=== PATIENT | female | born 1990 | race Caucasian/White ===

== ENCOUNTER 2016-12-28 21:18 | Emergency (ER) | payer BC, OTHER ==
[~2016-12-28 21:18] MED LIST: IBUP60TA PO; MUCI30TA2 PO; PERCOCET PO; VITAPRTA PO
[2016-12-28] MEDS ORDERED: NAPROXEN 250 MG TAB As Ordered ONE ×2 (22:24→22:29)
[2016-12-28] MEDS ORDERED: AUGMENTIN 875 MG TAB As Ordered ONE (22:25)
--- NOTE | 2016-12-28 22:38 | EDDOCDS ---
Physician Documentation [facility] Name: Mag Rodriguez Age: 26 yrs Sex: Female : 1990 Arrival Date: 12/28/2016 Time: 21:18 Bed 13 Private MD: Other - Complete Info On Cds Disposition: 12/28 22:22 Critical Care: Critical care not applicable. le Disposition: 12/28/16 22:17 Discharged to Home/Self Care. Impression: Nonspecific lymphadenitis - right post auricular. - Condition is Stable. - Discharge Instructions: Lymphadenopathy. - Prescriptions for Augmentin 875- 125 mg Oral Tablet - take 1 tablet by ORAL route every 12 hours for 10 days; 20 tablet. - Medication Reconciliation, Local Pharmacy Hours form. - Follow up: TAMIA Ortega; When: Call to arrange an appointment; Reason: Recheck today's complaints, Continuance of care. - Problem is new. - Symptoms are unchanged. - Notes: Use Ibuprofen and Tylenol, as needed, for pain Return to the ED for worsening of swelling, redness, fever or any other concerns Historical: - Allergies: Copaxone; - Home Meds: 1. rebif Unknown 3x/week 2. Vitamin D Oral daily 3. Vitamin B-12 Oral daily - PMHx: Multiple Sclerosis; - PSHx: right unilateral coronal synsistosis; Tonsillectomy; plantar wart removal; ; - Social history: Smoking status: Patient states was never smoker of tobacco. No barriers to communication noted, The patient speaks fluent Vietnamese. - Family history: No immediate family members are acutely ill. - : The pt / caregiver states he / she is not on anticoagulants. Home medication list is obtained from the patient. - Exposure Risk Screening:: None identified. 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 5 in. (165.10 cm) (R); Pain 5/10; 21:20 Body Mass Index 35.61 (97.07 kg, 165.10 cm) gr2 MDM: 22:14 Amoxicillin-Clavulanate 875 mg 1 tabs PO once ordered. le 22:14 Naproxen 500 mg PO once; administer with food or milk ordered. le Signatures: Elaine Pederson RN RN Rosario Piña FNP Eligio Randhawa RN RN mb9 MTDD
--- NOTE | 2016-12-28 22:38 | EDDOCDS ---
Nurse's Notes [facility] Name: Mag Rodriguez Age: 26 yrs Sex: Female : 1990 Arrival Date: 12/28/2016 Time: 21:18 Bed 13 Private MD: Other - Complete Info On Cds Diagnosis: Nonspecific lymphadenitis-right post auricular Presentation: 12/28 21:26 Presenting complaint: Patient states: Bump behind right ear for last 3 days. Adult [facility] Sepsis Screening: The patient does not have new or worsening altered mentation. Patient's respiratory rate is less than 22. Systolic blood pressure is greater than 100. Patient has a qSOFA score of 0- Negative Sepsis Screen. Suicide/Homicide risk assessment- the patient denies having any suicidal and/or homicidal ideations and does not present with any other emotional, behavioral or mental health complaints. Status: The patient is a dependent. Transition of care: patient was not received from another setting of care. 21:26 Acuity: JESSI Level 4 [facility] 21:26 Method Of Arrival: Walkin/Carried/Asstd [facility] Triage Assessment: 21:30 General: Appears in no apparent distress, Behavior is cooperative. Pain: Location: [facility] right ear Pain currently is 7 out of 10 on a pain scale. HIV screening NA for this visit Offered previously. Neurological: No deficits noted. EENT: Reports pain in right ear Pain is 7 out of 10 on a pain scale. Respiratory: Airway is patent Respiratory effort is even, unlabored. Derm: Skin is pink, warm & dry. 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 rebif Unknown 3x/week 2. Vitamin D Oral daily 3. Vitamin B-12 Oral daily - PMHx: Multiple Sclerosis; - PSHx: right unilateral coronal synsistosis; Tonsillectomy; plantar wart removal; ; - Social history: Smoking status: Patient states was never smoker of tobacco. No barriers to communication noted, The patient speaks fluent Slovenian. - Family history: No immediate family members are acutely ill. - : The pt / caregiver states he / she is not on anticoagulants. Home medication list is obtained from the patient. - Exposure Risk Screening:: None identified. Screenin:35 Screening information is obtained from the patient. Fall risk: No risks identified. mb9 Assistance ADL's: requires no assistance with activities of daily living. Abuse/DV Screen: The patient / caregiver reports he/she is: not in a situation that causes fear, pain or injury. Nutritional screening: No deficits noted. Advance Directives: There is no active DNR order. home support is adequate. Assessment: 22:35 General: Appears in no apparent distress, Behavior is appropriate for age, cooperative. mb9 Respiratory: Airway is patent Respiratory effort is even, unlabored. Vital Signs: 21:20 BP 134 / 77; Pulse 84; Resp 18 S; Temp 97.1(O); Pulse Ox 99% on R/A; Weight 97.07 kg gr2 (R); Height 5 ft. 5 in. (165.10 cm) (R); Pain 5/10; 21:20 Body Mass Index 35.61 (97.07 kg, 165.10 cm) gr2 Vitals: 21:20 Log In Time: December 28, 2016 at 21:20. gr2 ED Course: 21:19 Patient visited by Macario Gutierrez. gr2 21:19 Patient moved to Waiting gr2 21:20 Other - Complete Info On Cds is Private Physician. gr2 21:21 Patient visited by Macario Gutierrez. gr2 21:21 Patient moved to Pre RCE gr2 21:27 Triage Initiated mcp 21:30 Patient visited by Elaine Pederson RN. mcp 22:04 [facility] le 22:04 Patient moved to 13 cz 22:08 Patient visited by Rosario Messer FNP. le 22:08 Patient visited by Rosario Messer FNP. le 22:17 Jordan [facility] is Referral Physician. le 22:35 The patient / caregiver is instructed regarding the plan of care and ED course. Patient mb9 has correct armband on for positive identification. 22:35 No IV's were initiated during this patient's visit. No procedures done that require mb9 assistance. Order Results: There are currently no results for this order. Outcome: 22:17 Discharge ordered by Provider. le 22:35 Discharge Assessment: Patient awake, alert and oriented x 3. No cognitive and/or mb9 functional deficits noted. Patient verbalized understanding of disposition instructions. patient administered narcotics - no. The following High Risk Discharge criteria are identified: None. Discharged to home ambulatory. Condition: good Condition: stable Condition: improved. Discharge instructions given to patient, Instructed on discharge instructions, Demonstrated understanding of instructions, medications, Pt was receptive of discharge instructions/ teaching. Prescriptions given X 1. No special radiology studies were completed. Property :Personal belongings accompany Pt. 22:37 Patient left the ED. mb9 Signatures: Elaine Pederson RN RN mcp Zecher, Calvin, RN RN cz Westcott, Lisa, FNP FNP le Raymond, Gainslee gr2 Eligio Sanabria RN RN mb9 MTDMaldonado
--- NOTE | 2016-12-30 23:38 | EDDOCDS ---
Nurse's Notes [facility] Name: Mag Rodriguez Age: 26 yrs Sex: Female : 1990 Arrival Date: 12/28/2016 Time: 21:18 Bed 13 Private MD: Other - Complete Info On Cds Diagnosis: Nonspecific lymphadenitis-right post auricular Presentation: 12/28 21:26 Presenting complaint: Patient states: Bump behind right ear for last 3 days. Adult [facility] Sepsis Screening: The patient does not have new or worsening altered mentation. Patient's respiratory rate is less than 22. Systolic blood pressure is greater than 100. Patient has a qSOFA score of 0- Negative Sepsis Screen. Suicide/Homicide risk assessment- the patient denies having any suicidal and/or homicidal ideations and does not present with any other emotional, behavioral or mental health complaints. Status: The patient is a dependent. Transition of care: patient was not received from another setting of care. 21:26 Acuity: JESSI Level 4 [facility] 21:26 Method Of Arrival: Walkin/Carried/Asstd [facility] Triage Assessment: 21:30 General: Appears in no apparent distress, Behavior is cooperative. Pain: Location: [facility] right ear Pain currently is 7 out of 10 on a pain scale. HIV screening NA for this visit Offered previously. Neurological: No deficits noted. EENT: Reports pain in right ear Pain is 7 out of 10 on a pain scale. Respiratory: Airway is patent Respiratory effort is even, unlabored. Derm: Skin is pink, warm & dry. 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 rebif Unknown 3x/week 2. Vitamin D Oral daily 3. Vitamin B-12 Oral daily - PMHx: Multiple Sclerosis; - PSHx: right unilateral coronal synsistosis; Tonsillectomy; plantar wart removal; ; - Social history: Smoking status: Patient states was never smoker of tobacco. No barriers to communication noted, The patient speaks fluent Turkish. - Family history: No immediate family members are acutely ill. - : The pt / caregiver states he / she is not on anticoagulants. Home medication list is obtained from the patient. - Exposure Risk Screening:: None identified. Screenin:35 Screening information is obtained from the patient. Fall risk: No risks identified. mb9 Assistance ADL's: requires no assistance with activities of daily living. Abuse/DV Screen: The patient / caregiver reports he/she is: not in a situation that causes fear, pain or injury. Nutritional screening: No deficits noted. Advance Directives: There is no active DNR order. home support is adequate. Assessment: 22:35 General: Appears in no apparent distress, Behavior is appropriate for age, cooperative. mb9 Respiratory: Airway is patent Respiratory effort is even, unlabored. Vital Signs: 21:20 BP 134 / 77; Pulse 84; Resp 18 S; Temp 97.1(O); Pulse Ox 99% on R/A; Weight 97.07 kg gr2 (R); Height 5 ft. 5 in. (165.10 cm) (R); Pain 5/10; 21:20 Body Mass Index 35.61 (97.07 kg, 165.10 cm) gr2 Vitals: 21:20 Log In Time: December 28, 2016 at 21:20. gr2 ED Course: 21:19 Patient visited by Macario Gutierrez. gr2 21:19 Patient moved to Waiting gr2 21:20 Other - Complete Info On Cds is Private Physician. gr2 21:21 Patient visited by Macario Gutierrez. gr2 21:21 Patient moved to Pre RCE gr2 21:27 Triage Initiated mcp 21:30 Patient visited by Elaine Pederson RN. mcp 22:04 Ros[facility] Messer FNP [facility]. le 22:04 Patient moved to 13 cz 22:08 Patient visited by Rosario Messer FNP. le 22:08 Patient visited by Rosario Messer FNP. le 22:[address] [facility] [place] Referral Physician. le 22:35 The patient / caregiver is instructed regarding the plan of care and ED course. Patient mb9 has correct armband on for positive identification. 22:35 No IV's were initiated during this patient's visit. No procedures done that require mb9 assistance. 23:03 [facility] Payment Agreement was scanned into [employer] and attached to record. gjb 12/29 12:35 T-Sheet-- Draft Copy was scanned into [employer] and attached to record. gb Order Results: There are currently no results for this order. Outcome: 12/28 22:17 Discharge ordered by Provider. le 22:35 Discharge Assessment: Patient awake, alert and oriented x 3. No cognitive and/or mb9 functional deficits noted. Patient verbalized understanding of disposition instructions. patient administered narcotics - no. The following High Risk Discharge criteria are identified: None. Discharged to home ambulatory. Condition: good Condition: stable Condition: improved. Discharge instructions given to patient, Instructed on discharge instructions, Demonstrated understanding of instructions, medications, Pt was receptive of discharge instructions/ teaching. Prescriptions given X 1. No special radiology studies were completed. Property :Personal belongings accompany Pt. 22:37 Patient left the ED. mb9 Signatures: Elaine Pederson RN RN Danie Sorto, BENEDICTO RN Talia Benites, Rosario Menendez, TRAFFIC SUPERVISOR TRAFFIC SUPERVISOR Macario Jules 2 Eliigo Sanabria RN RN mb9 Yesi Manzo Chart Complete [facility]
--- NOTE | 2016-12-30 23:38 | EDDOCDS ---
Physician Documentation [facility] Name: aMg Rodriguez Age: 26 yrs Sex: Female : 1990 Arrival Date: 12/28/2016 Time: 21:18 Bed 13 Private MD: Other - Complete Info On Cds Disposition: 12/28 22:22 Critical Care: Critical care not applicable. le Disposition: 12/28/16 22:17 Discharged to Home/Self Care. Impression: Nonspecific lymphadenitis - right post auricular. - Condition is Stable. - Discharge Instructions: Lymphadenopathy. - Prescriptions for Augmentin 875- 125 mg Oral Tablet - take 1 tablet by ORAL route every 12 hours for 10 days; 20 tablet. - Medication Reconciliation, Local Pharmacy Hours form. - Follow up: TAMIA Ortega; When: Call to arrange an appointment; Reason: Recheck today's complaints, Continuance of care. - Problem is new. - Symptoms are unchanged. - Notes: Use Ibuprofen and Tylenol, as needed, for pain Return to the ED for worsening of swelling, redness, fever or any other concerns Historical: - Allergies: Copaxone; - Home Meds: 1. rebif Unknown 3x/week 2. Vitamin D Oral daily 3. Vitamin B-12 Oral daily - PMHx: Multiple Sclerosis; - PSHx: right unilateral coronal synsistosis; Tonsillectomy; plantar wart removal; ; - Social history: Smoking status: Patient states was never smoker of tobacco. No barriers to communication noted, The patient speaks fluent Maori. - Family history: No immediate family members are acutely ill. - : The pt / caregiver states he / she is not on anticoagulants. Home medication list is obtained from the patient. - Exposure Risk Screening:: None identified. 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 5 in. (165.10 cm) (R); Pain 5/10; 21:20 Body Mass Index 35.61 (97.07 kg, 165.10 cm) gr2 MDM: 22:14 Amoxicillin-Clavulanate 875 mg 1 tabs PO once ordered. le 22:14 Naproxen 500 mg PO once; administer with food or milk ordered. le 23:03 [facility] Payment Agreement was scanned into [employer] and attached to record. gjb : Financial registration complete. gjb 12/29 12:35 T-Sheet-- Draft Copy was scanned into [employer] and attached to record. gb Signatures: Elaine Pederson RN RN mcp Barnhardt, Gloria, Reg Reg gb Rosario Messer, STONE DECORATOR STONE DECORATOR Eligio Mcmillan RN RN mb9 Yesi Manzo The chart was reviewed and I authenticate all verbal orders and agree with the evaluation and treatment provided.Attachments: 12/28 23:03 [facility] Payment Agreement b 12/29 12:35 T-Sheet-- Draft Copy gb Chart Complete MTDD
--- NOTE | 2016-12-30 23:38 | EDDOCDS ---
Physician Documentation [facility] Name: Mag Rodriguez Age: 26 yrs Sex: Female : 1990 Arrival Date: 12/28/2016 Time: 21:18 Bed 13 Private MD: Other - Complete Info On Cds Disposition: 12/28 22:22 Critical Care: Critical care not applicable. le Disposition: 12/28/16 22:17 Discharged to Home/Self Care. Impression: Nonspecific lymphadenitis - right post auricular. - Condition is Stable. - Discharge Instructions: Lymphadenopathy. - Prescriptions for Augmentin 875- 125 mg Oral Tablet - take 1 tablet by ORAL route every 12 hours for 10 days; 20 tablet. - Medication Reconciliation, Local Pharmacy Hours form. - Follow up: TAMIA Ortega; When: Call to arrange an appointment; Reason: Recheck today's complaints, Continuance of care. - Problem is new. - Symptoms are unchanged. - Notes: Use Ibuprofen and Tylenol, as needed, for pain Return to the ED for worsening of swelling, redness, fever or any other concerns Historical: - Allergies: Copaxone; - Home Meds: 1. rebif Unknown 3x/week 2. Vitamin D Oral daily 3. Vitamin B-12 Oral daily - PMHx: Multiple Sclerosis; - PSHx: right unilateral coronal synsistosis; Tonsillectomy; plantar wart removal; ; - Social history: Smoking status: Patient states was never smoker of tobacco. No barriers to communication noted, The patient speaks fluent Italian. - Family history: No immediate family members are acutely ill. - : The pt / caregiver states he / she is not on anticoagulants. Home medication list is obtained from the patient. - Exposure Risk Screening:: None identified. 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 5 in. (165.10 cm) (R); Pain 5/10; 21:20 Body Mass Index 35.61 (97.07 kg, 165.10 cm) gr2 MDM: 22:14 Amoxicillin-Clavulanate 875 mg 1 tabs PO once ordered. le 22:14 Naproxen 500 mg PO once; administer with food or milk ordered. le 23:03 [facility] Payment Agreement was scanned into [employer] and attached to record. gjb : Financial registration complete. gjb 12/29 12:35 T-Sheet-- Draft Copy was scanned into [employer] and attached to record. gb Signatures: Elaine Pederson RN RN mcp Barnhardt, Gloria, Reg Reg gb Rosario Messer, TRANSFER WORKER TRANSFER WORKER Eligio Mcmillan RN RN mb9 Yesi Manzo The chart was reviewed and I authenticate all verbal orders and agree with the evaluation and treatment provided.Attachments: 12/28 23:03 [facility] Payment Agreement b 12/29 12:35 T-Sheet-- Draft Copy gb Chart Complete MTDD
== END 2016-12-28 22:37 | disposition home or self-care (01) ==
LOC: M ED 21:18
DX: L04.0 Acute lymphadenitis of face, head and neck (principal); G35 Multiple sclerosis; Z79.899 Other long term (current) drug therapy; Z88.8 Allergy status to other drugs, medicaments and biological substances

== ENCOUNTER 2018-07-25 12:43 | Inpatient (IN) | payer OTHER ==
[2018-07-25] MEDS: LACTATED RINGER'S 1000 ML IV (14:21)
[2018-07-25] MEDS: LR 1,000 ML IV ×2 (14:21→22:15)
[2018-07-25 14:34] LABS: BASO % 0.2 % (0.0-1.0); EOS # 0.1 10^3/uL (0.0-0.50); EOS % 0.6 % (0.0-3.0); HEMATOCRIT 35.8 % (36.0-47.0); HEMOGLOBIN 11.6 g/dl (12.0-15.5); IMMATURE GRANULOCYTE % 0.5 % (0-3.0); LYMPH # 1.9 10^3/uL (1.5-6.5); LYMPH % 19.1 % (24.0-44.0); MEAN CORPUSCULAR HGB CONC 32.4 g/dl (32.0-36.5); MEAN CORPUSCULAR VOLUME 86.3 fl (80.0-96.0); MONO # 0.7 10^3/uL (0.0-0.8); MONO % 7.3 % (0.0-5.0); NEUTROPHILS # 7.4 10^3/uL (1.8-7.7); NEUTROPHILS % 72.3 % (36.0-66.0); PLATELET COUNT, AUTOMATED 266 10^3/uL (150-450); RED BLOOD COUNT 4.15 10^6/uL (4.00-5.40); RED CELL DISTRIBUTION WIDTH 14.1 % (11.5-14.5); WHITE BLOOD COUNT 10.2 10^3/uL (4.0-10.0)
[2018-07-25] MEDS ORDERED: FENTANYL 2MCG/ML ROPIVACAINE 0.2% IN 0.9% NACL 200ML IVBAG As Ordered (15:10)
[2018-07-25] MEDS ORDERED: NALOXONE INJ 0.4 MG/1 ML VIAL (J2310) IV (16:00)
[2018-07-25] MEDS ORDERED: EPIDURAL COMMENT XX (16:00)
[2018-07-25] MEDS ORDERED: EPIDURAL/PCA KEYS XX (16:00)
[2018-07-25] MEDS ORDERED: REFRIGERATOR IV KEYS XX (16:00)
[2018-07-25] MEDS ORDERED: FENTANYL/ROPIVACAINE/NACL BAG 200 ML EPIDURAL (16:00)
[2018-07-25] MEDS ORDERED: ePHEDrine SULFATE 25 MG/5 ML(5MG/ML) SYRINGE IV (16:00)
[2018-07-25] MEDS ORDERED: ONDANSETRON 4MG/2ML VIAL (J2405) IV (16:00)
[2018-07-25] MEDS ORDERED: diphenhydrAMINE INJ 50MG/ML VIAL (J1200) IV (16:00)
[2018-07-25] MEDS ORDERED: DOCUSATE SODIUM 100 MG CAP PO (16:30)
[2018-07-25] MEDS ORDERED: ACETAMINOPHEN 500 MG TAB PO (16:30)
[2018-07-25] MEDS ORDERED: DIBUCAINE 1% OINTMENT 30GM TOP (16:30)
[2018-07-25] MEDS ORDERED: MEASLES,MUMPS,RUBELLA VACCINE INJ (MMR-II) (90707) SC (16:30)
[2018-07-25] MEDS ORDERED: RHOGAM 300 MCG (1500 IU) INJ (J2790) IM (16:30)
[2018-07-25] MEDS: OXYTOCIN DRIP 30 UNITS in APPROPRIATE DILUENT 1 EA IV ×4 (17:15→20:39)
[2018-07-25] MEDS: IBUPROFEN 800 MG TAB PO (22:53)
[2018-07-26] MEDS: LR 1,000 ML IV (06:15)
[2018-07-26] MEDS: PRENATAL VITAMINS CHEWABLE TABLET PO (09:06)
[2018-07-26] MEDS: IBUPROFEN 800 MG TAB PO (09:06)
[2018-07-26] MEDS: VITAMIN D 1,000 INTERNATIONAL UNITS TABLET PO (11:08)
== END 2018-07-26 13:07 | disposition home or self-care (01) | DRG 775 ==
LOC: M LDO 12:43 → M LDI 13:52 → M OBS 18:10
PROVIDERS: Obstetrics & Gynecology
PROC: 10E0XZZ Delivery of Products of Conception, External Approach (ICD-10-PCS; principal; 2018-07-25)
PROC: 0KQM0ZZ Repair Perineum Muscle, Open Approach (ICD-10-PCS; 2018-07-25)
DX: O48.0 Post-term pregnancy (principal); Z37.0 Single live birth; Z3A.40 40 weeks gestation of pregnancy; O34.211 Maternal care for low transverse scar from previous cesarean delivery; Z91.048 Other nonmedicinal substance allergy status; Z88.8 Allergy status to other drugs, medicaments and biological substances; O70.1 Second degree perineal laceration during delivery

== ENCOUNTER → 2018-11-26 | Outpatient (REF) | payer OTHER ==
[~2018-11-26] MED LIST changes: +COLA100C5 PO; +DIBU1OIN TOP; +IBUP-1114 PO; +MAPA500T2 PO; -MUCI30TA2 PO; +MUCI30TA5 PO; +TUMS500C PO; +VITA200015 PO; +VITA500T3 PO
[2018-11-26 16:39] LABS: BASO % 0.4 % (0.0-1.0); EOS # 0.2 10^3/uL (0.0-0.50); EOS % 3.2 % (0.0-3.0); HEMATOCRIT 36.5 % (36.0-47.0); HEMOGLOBIN 12.7 g/dl (12.0-15.5); LYMPH # 2.7 10^3/uL (1.5-6.5); LYMPH % 38.5 % (24.0-44.0); MEAN CORPUSCULAR HEMOGLOBIN 30.2 pg (27.0-33.0); MEAN CORPUSCULAR HGB CONC 34.8 g/dl (32.0-36.5); MEAN CORPUSCULAR VOLUME 86.7 fl (80.0-96.0); MONO # 0.5 10^3/uL (0.0-0.8); MONO % 7.5 % (0.0-5.0); NEUTROPHILS # 3.5 10^3/uL (1.8-7.7); NEUTROPHILS % 50.3 % (36.0-66.0); PLATELET COUNT, AUTOMATED 303 10^3/uL (150-450); RED BLOOD COUNT 4.21 10^6/uL (4.00-5.40)
[2018-11-26 17:17] LABS: ALBUMIN 3.7 GM/DL (3.2-5.2); ALT/SGPT 41 U/L (12-78); BILIRUBIN,TOTAL 0.3 MG/DL (0.2-1.0); BLOOD UREA NITROGEN 12 MG/DL (7-18); CALCIUM LEVEL 8.9 MG/DL (8.5-10.1); CARBON DIOXIDE LEVEL 29 MEQ/L (21-32); CHLORIDE LEVEL 106 MEQ/L (98-107); CREATININE FOR GFR 0.92 MG/DL (0.55-1.30); GLOMERULAR FILTRATION RATE > 60.0 (>60); GLUCOSE, FASTING 95 MG/DL (70-100); POTASSIUM SERUM 3.9 MEQ/L (3.5-5.1); RHEUMATOID FACTOR QUANT < 10.0 IU/ML (<15.0); SODIUM LEVEL 141 MEQ/L (136-145); TOTAL PROTEIN 7.4 GM/DL (6.4-8.2)
[2018-11-26 17:18] LABS: FOLATE > 24.0 NG/ML; TOTAL 25(OH) VITAMIN D 41.7 NG/ML (30.0-100.0); VITAMIN B12 LEVEL 588 PG/ML
[2018-11-26 17:46] LABS: ERYTHROCYTE SEDIMENTATION RATE 28 mm/hr (0-20)
[2018-11-27 11:50] LABS: HEPATITIS B SURFACE ANTIGEN NEGATIVE (NEGATIVE)
[2018-11-27 12:17] LABS: HEPATITIS B CORE ANTIBODY IGM NEGATIVE (NEGATIVE); HEPATITIS C VIRUS ABY INDEX 0.1 INDEX (<0.8)
[2018-11-27 12:20] LABS: HEPATITIS A ANTIBODY IGM NEGATIVE (NEGATIVE)
[2018-12-01 10:58] LABS: DRVV SCREEN 49.8 SEC
[2018-12-01 11:06] LABS: PTT LUPUS TYPE ANTICOAG SCREEN 1.2 (0-1.2)
[2018-12-01 11:14] LABS: DRVV CONFIRM 35.7 SEC; LUPUS CONFIRM RATIO 0.9
[2018-12-01 11:27] LABS: NORMALIZED RATIO 1.33 (0.00-1.20)
[2018-12-04 08:07] LABS: HEXAGONAL PHASE PHOSPHOLIPID 45 sec (0-11)
[2018-12-08 00:07] LABS: ANGIOTENSIN 1 CONVERTING ENZYM 48 U/L (14-82); ANTINUCLEAR ANTIBODIES DIRECT Negative (Negative); HERPES ZOSTER, VARICELLA IgG 736 index (Immune >165); Lyme Disease IgG Ab 18 kDa Ban Absent (.); Lyme Disease IgG Ab 23 kDa Ban Absent (.); Lyme Disease IgG Ab 28 kDa Ban Absent (.); Lyme Disease IgG Ab 30 kDa Ban Absent (.); Lyme Disease IgG Ab 39 kDa Ban Absent (.); Lyme Disease IgG Ab 41 kDa Ban Absent (.); Lyme Disease IgG Ab 45 kDa Ban Absent (.); Lyme Disease IgG Ab 58 kDa Ban Absent (.); Lyme Disease IgG Ab 66 kDa Ban Absent (.); Lyme Disease IgG Ab 93 kDa Ban Absent (.); Lyme Disease IgG West Blot Int Negative (.); Lyme Disease IgG/IgM Antibodie <0.91 ISR (0.00-0.90); Lyme Disease IgM Ab 23 kDa Ban Absent (.); Lyme Disease IgM Ab 39 kDa Ban Absent (.); Lyme Disease IgM Ab 41 kDa Ban Absent (.); Lyme Disease IgM Ab Quantitati 1.13 index (0.00-0.79); Lyme Disease IgM West Blot Int Negative (.)
== END ==
LOC: M LABNEURO 15:32
PROVIDERS: ATTEND Psychiatry & Neurology Neurology
DX: G35 Multiple sclerosis (principal)